=== PATIENT | male | born 1990 | race Two or more races ===

== ENCOUNTER → 2020-04-08 | Outpatient (CLI) | payer OTHER ==
--- NOTE | 2020-04-08 14:19 | RAD ---
EXAM: Left wrist, 3 views. HISTORY: Fracture follow-up. COMPARISON: None. FINDINGS: 3 views of the left wrist are obtained. There is a minimally displaced fracture of the scap hoid waist. No additional fracture is seen. IMPRESSION: Minimally displaced scaphoid fracture. Electronically signed by: Chelsea Murphy MD (04/08/2020 2:16 PM) [id number]
== END ==
LOC: DXRAD 12:42
PROVIDERS: ATTEND Physician Assistant
DX: S62.002A Unspecified fracture of navicular [scaphoid] bone of left wrist, initial encounter for closed fracture (principal); X58.XXXA Exposure to other specified factors, initial encounter; Y93.89 Activity, other specified; Y92.89 Other specified places as the place of occurrence of the external cause; Y99.8 Other external cause status
CPT/HCPCS: 73110